=== PATIENT | male | born 1980 | race Two or more races ===

== ENCOUNTER 2019-11-24 09:44 | Emergency (ER) | payer MEDICAID ==
[~2019-11-24] VITALS: Ht 172.7 cm; Wt 95.3 kg
[2019-11-24] MEDS ORDERED: ACETAMINOPHEN 325 MG TAB PO ONE (10:15)
[2019-11-24] MEDS ORDERED: AZITHROMYCIN 500MG/ 250ML 250 ML IV ONE (10:30)
[2019-11-24] MEDS ORDERED: methylPREDNISolone SOD SUCC 125 MG/2 ML VL IV ONE (10:30)
[2019-11-24] MEDS ORDERED: SODIUM CHLORIDE 0.9% 1,000 ML IV ONE (10:30)
[2019-11-24 11:12] LABS: Basophils # (auto) 0.1 10 ^3/uL (0-0.2); Basophils % (auto) 0.3 % (0.0-2.0); Eosinophils # (auto) 0 10 ^3/uL (0-0.8); Hematocrit 44.6 % (41.0-53.0); Hemoglobin 14.5 g/dL (13.5-17.5); Lymphocytes # (auto) 0.8 10 ^3/uL (0.4-5.4); Lymphocytes % (auto) 5.3 % (10.0-50.0); Mean Corpuscular Hemoglobin 29.7 pg (28.0-32.0); Mean Corpuscular Hgb Conc. 32.4 g/dL (32.0-36.0); Mean Corpuscular Volume 91.7 fL (80.0-100.0); Monocytes # (auto) 1.5 10 ^3/uL (0-1.3); Monocytes % (auto) 9.4 % (0.0-12.0); Neutrophils # (auto) 13.3 10 ^3/uL (1.6-8.6); Platelet Count (auto) 261 10^3/uL (140-450); Red Blood Cells 4.86 10^6/uL (4.5-5.90); Red Cell Distribution Width 13.4 % (11.8-14.3); White Blood Cell 15.6 10^3/uL (4.4-10.8)
[2019-11-24 11:46] LABS: Albumin 4.1 g/dL (3.4-5.0); Calcium 9.6 mg/dL (8.5-10.1); Potassium 3.3 mmol/L (3.5-5.1)
[2019-11-24 11:56] LABS: Total Protein 7.9 g/dL (6.4-8.2)
[2019-11-24 12:13] LABS: BUN/Creatinine Ratio 7.4
[2019-11-24 12:14] LABS: Bilirubin, Total 0.7 mg/dL (0.2-1.0)
[2019-11-24 13:08] LABS: CRP High Sensitivity 18.2 mg/dL (< 0.3)
[2019-11-24 14:47] VITALS: BP 128/82
== END 2019-11-24 14:39 | disposition home or self-care (01) ==
LOC: ER 09:44
DX: J02.9 Acute pharyngitis, unspecified (principal); Z20.828 Contact with and (suspected) exposure to other viral communicable diseases; F17.210 Nicotine dependence, cigarettes, uncomplicated
CPT/HCPCS: 36415; 71045; 80053; 82728; 83605; 83615; 85025; 86141; 87040; 87070; 87426; 87804; 87880; 96365; 96366; 96375; 99284; J0456; J2930; J7030

== ENCOUNTER 2019-11-25 08:10 | Inpatient (IN) | payer MEDICAID ==
[~2019-11-25] VITALS: Ht 175.3 cm; Wt 80.5 kg
[2019-11-25] MEDS ORDERED: SODIUM CHLORIDE 0.9% 1,000 ML IV ONE ×2 (08:49→11:43)
[2019-11-25] MEDS ORDERED: KETOROLAC TROMETH 30 MG/ML 1ML VIAL IV ONE (09:00)
[2019-11-25] MEDS ORDERED: methylPREDNISolone SOD SUCC 125 MG/2 ML VL IV ONE (09:00)
[2019-11-25] MEDS ORDERED: cefTRIAXone 1GM/50ML D5W 50 ML IV ONE (09:00)
[2019-11-25] MEDS ORDERED: LORazepam 2MG/ML-1ML VIAL IV ONE (09:45)
[2019-11-25 10:05] LABS: Albumin 3.8 g/dL (3.4-5.0); Calcium 9.2 mg/dL (8.5-10.1); Potassium 3.6 mmol/L (3.5-5.1)
[2019-11-25 10:08] LABS: Bilirubin, Total 0.6 mg/dL (0.2-1.0); Total Protein 8.1 g/dL (6.4-8.2)
[2019-11-25 10:15] LABS: Basophils # (auto) 0.1 10 ^3/uL (0-0.2); Basophils % (auto) 0.4 % (0.0-2.0); Eosinophils # (auto) 0 10 ^3/uL (0-0.8); Eosinophils % (auto) 0.1 % (0.0-7.0); Hematocrit 42.6 % (41.0-53.0); Hemoglobin 13.7 g/dL (13.5-17.5); Lymphocytes % (auto) 4.7 % (10.0-50.0); Mean Corpuscular Hemoglobin 29.8 pg (28.0-32.0); Mean Corpuscular Hgb Conc. 32.2 g/dL (32.0-36.0); Mean Corpuscular Volume 92.4 fL (80.0-100.0); Monocytes # (auto) 2.6 10 ^3/uL (0-1.3); Monocytes % (auto) 12.2 % (0.0-12.0); Neutrophils # (auto) 17.8 10 ^3/uL (1.6-8.6); Neutrophils % (auto) 82.6 % (37.0-80.0); Nucleated Red Blood Cells % 0.1 %; Platelet Count (auto) 277 10^3/uL (140-450); Red Blood Cells 4.61 10^6/uL (4.5-5.90); Red Cell Distribution Width 13.7 % (11.8-14.3); White Blood Cell 21.5 10^3/uL (4.4-10.8)
[2019-11-25] MEDS ORDERED: SUCCINYLCHOLINE CHLORIDE 20 MG/ML 10ML VIAL IV ONE ×2 (10:15→11:15)
[2019-11-25] MEDS ORDERED: ETOMIDATE (2MG/ML) 20ML VIAL IV ONE ×2 (10:15→11:15)
[2019-11-25] MEDS ORDERED: MIDAZOLAM DRIP 50 mg/50mL 50 ML IV ONE ×2 (10:16→11:48)
[2019-11-25 10:37] LABS: CRP High Sensitivity 17.4 mg/dL (< 0.3)
[2019-11-25 10:50] VITALS: BP 95/47
[2019-11-25] MEDS ORDERED: EPINEPHrine HCL 1 MG/10 ML SYRG ONE ×2 (10:50→11:01)
[2019-11-25] MEDS ORDERED: MAGNESIUM SULFATE 1GM/100ML 100 ML IV ONE ×3 (10:57→11:15)
[2019-11-25] MEDS: MIDAZOLAM DRIP 50 mg/50mL 50 ML IV SCH (11:05)
[2019-11-25] MEDS ORDERED: LORazepam 2MG/ML-1ML VIAL IV PRN (11:45)
[2019-11-25] MEDS ORDERED: MORPHINE SULFATE 4 MG/ML SYR/VIAL IV PRN (11:45)
[2019-11-25] MEDS ORDERED: NITROGLYCERIN 0.4 MG SL TAB SL PRN (11:45)
[2019-11-25] MEDS ORDERED: VANCOMYCIN PER PHARMACY 1,000 MG IV SCH (11:45)
[2019-11-25] MEDS ORDERED: MORPHINE SULF INJ 2 MG/ML SYRINGE 1ML IV PRN (11:45)
[2019-11-25] MEDS ORDERED: NOREPINEPHRINE 8 MG/250ML KIT 250 ML IV ONE (11:58)
[2019-11-25] MEDS: NOREPINEPHRINE 8 MG/250ML KIT 250 ML IV SCH (12:00)
[2019-11-25] MEDS ORDERED: DexAMETHasone INJECTION 10 MG in SODIUM CHL 3% 500 ML IV SCH (12:00)
[2019-11-25 12:04] LABS: Urine Amorphous Crystal FEW /hpf (None Seen); Urine Bacteria FEW /hpf (None Seen); Urine Blood 1+ /uL (Negative); Urine Hyaline Cast FEW /lpf (0 - 2); Urine Mucus FEW (None Seen); Urine Specific Gravity 1.013 (1.001-1.035); Urine WBC 28 /hpf (0 - 3)
[2019-11-25 12:26] LABS: INR 0.99 (0.9-1.15); Partial Thromboplastin Time 25.2 sec (23.0-31.2)
[2019-11-25 12:30] VITALS: BP 106/53
[2019-11-25] MEDS ORDERED: HYDROCORTISONE SOD SUCC 100 MG/2ML INJ VIAL IV SCH (12:30)
[2019-11-25 12:32] LABS: Alcohol, Urine < 3.0 mg/dL (0-10); Amphetamine Screen, Urine NEGATIVE (NEGATIVE); Barbiturate Scree,Urine NEGATIVE (NEGATIVE); Benzodiazephine Screen, Urine POSITIVE (NEGATIVE); Cannabinoid Screen, Urine NEGATIVE (NEGATIVE); Cocaine Screen, Urine NEGATIVE (NEGATIVE); Opiate Scree,Urine NEGATIVE (NEGATIVE); Phencyclidine Screen, Urine NEGATIVE (NEGATIVE)
[2019-11-25] MEDS ORDERED: PROPOFOL 100 ML IV ONE (13:52)
[2019-11-25] MEDS: PROPOFOL 100 ML IV SCH (14:00)
[2019-11-25] MEDS: PIPERACILLIN-TAZOB 3.375GM 100 ML IV SCH ×2 (14:14→18:40)
[2019-11-25] MEDS ORDERED: IOHEXOL 350 MG/ML 100ML IJ ONE (15:25)
[2019-11-25] MEDS: VANCOMYCIN 1GM/250ML 250 ML IV SCH (15:46)
[2019-11-25 15:53] LABS: Lactic Acid w/Reflex 2.4 mmol/L (0.4-2.0)
[2019-11-25 16:30] VITALS: BP 110/72
[2019-11-25 18:45] VITALS: BP 115/68
[2019-11-25 20:35] VITALS: BP 111/74
[2019-11-25] MEDS: ASCORBIC ACID 500 MG TAB PO SCH (22:00)
[2019-11-25 23:20] VITALS: BP 112/72
[2019-11-26] VITALS (48 sets, daily range): BP systolic 96–128; BP diastolic 63–85
[2019-11-26] MEDS: FAMOTIDINE (10MG/ML) 2ML VL IV SCH ×3 (02:51→22:02)
[2019-11-26] MEDS: PIPERACILLIN-TAZOB 3.375GM 100 ML IV SCH ×4 (02:52→18:30)
[2019-11-26] MEDS: VANCOMYCIN 1GM/250ML 250 ML IV SCH ×3 (03:04→21:00)
[2019-11-26] MEDS ORDERED: ACETAMINOPHEN 650 MG RECT SUPP PR ONE (07:15)
[2019-11-26 09:46] LABS: Basophils # (auto) 0 10 ^3/uL (0-0.2); Basophils % (auto) 0.2 % (0.0-2.0); Eosinophils # (auto) 0 10 ^3/uL (0-0.8); Hematocrit 39.2 % (41.0-53.0); Hemoglobin 12.8 g/dL (13.5-17.5); Lymphocytes # (auto) 1.1 10 ^3/uL (0.4-5.4); Lymphocytes % (auto) 7.5 % (10.0-50.0); Mean Corpuscular Hgb Conc. 32.6 g/dL (32.0-36.0); Mean Corpuscular Volume 92.1 fL (80.0-100.0); Monocytes # (auto) 1.6 10 ^3/uL (0-1.3); Monocytes % (auto) 11.1 % (0.0-12.0); Neutrophils % (auto) 81.2 % (37.0-80.0); Platelet Count (auto) 269 10^3/uL (140-450); Red Blood Cells 4.25 10^6/uL (4.5-5.90); Red Cell Distribution Width 13.5 % (11.8-14.3); White Blood Cell 14.7 10^3/uL (4.4-10.8)
[2019-11-26 09:53] LABS: Albumin 2.9 g/dL (3.4-5.0); Calcium 8.9 mg/dL (8.5-10.1)
[2019-11-26 09:56] LABS: BUN/Creatinine Ratio 18.2; Bilirubin, Total 1.1 mg/dL (0.2-1.0); Total Protein 6.9 g/dL (6.4-8.2)
[2019-11-26] MEDS ORDERED: DexAMETHasone SOD PHOS 10MG/1ML VIAL INJ IV SCH (10:00)
[2019-11-26] MEDS: ASCORBIC ACID 500 MG TAB PO SCH ×2 (10:20→22:02)
[2019-11-26] MEDS: ENOXAPARIN SOD 40 MG/0.4 ML SYRINGE SC SCH (10:20)
[2019-11-26] MEDS: CHOLECALCIFEROL (VITD3) 2,000 UNIT CAP PO SCH (10:20)
[2019-11-26] MEDS: ZINC SULFATE 220mg CAP or TAB PO SCH (10:20)
[2019-11-26] MEDS: MIDAZOLAM DRIP 50 mg/50mL 50 ML IV SCH ×2 (11:29→20:16)
[2019-11-26] MEDS: NOREPINEPHRINE 8 MG/250ML KIT 250 ML IV SCH (12:05)
[2019-11-26] MEDS ORDERED: EPINEPHrine HCL 1 MG/10 ML SYRG IV ONE (12:15)
[2019-11-26] MEDS ORDERED: CALCIUM CHLOR(10%) 100MG/ML 10ML SYRINGE IV ONE (12:15)
[2019-11-26] MEDS ORDERED: SODIUM BICARBONATE 8.4% INJ 50ML SYRINGE IV ONE (12:15)
[2019-11-26] MEDS: PROPOFOL 100 ML IV SCH ×2 (14:27→20:17)
[2019-11-26] MEDS: fentaNYL Drip 2500mCg/250mlNS 250 ML IV SCH (17:15)
[2019-11-26] MEDS: ACETAMINOPHEN 325 MG TAB PO PRN (18:57)
[2019-11-26] MEDS: methylPREDNISolone SOD SUCC 40 MG/ML VL IV SCH (22:03)
[2019-11-27] VITALS (105 sets, daily range): BP systolic 109–135; BP diastolic 63–78
[2019-11-27] MEDS: PIPERACILLIN-TAZOB 3.375GM 100 ML IV SCH ×4 (00:19→18:52)
[2019-11-27] MEDS: PROPOFOL 100 ML IV SCH ×3 (00:24→22:01)
[2019-11-27 04:24] LABS: Basophils # (auto) 0.1 10 ^3/uL (0-0.2); Basophils % (auto) 0.4 % (0.0-2.0); Eosinophils # (auto) 0 10 ^3/uL (0-0.8); Hematocrit 36.5 % (41.0-53.0); Hemoglobin 12.3 g/dL (13.5-17.5); Lymphocytes # (auto) 0.5 10 ^3/uL (0.4-5.4); Lymphocytes % (auto) 3.3 % (10.0-50.0); Mean Corpuscular Hemoglobin 31.2 pg (28.0-32.0); Mean Corpuscular Hgb Conc. 33.6 g/dL (32.0-36.0); Mean Corpuscular Volume 92.8 fL (80.0-100.0); Monocytes % (auto) 6.9 % (0.0-12.0); Neutrophils % (auto) 89.4 % (37.0-80.0); Platelet Count (auto) 282 10^3/uL (140-450); Red Blood Cells 3.94 10^6/uL (4.5-5.90); Red Cell Distribution Width 13.8 % (11.8-14.3); White Blood Cell 14.6 10^3/uL (4.4-10.8)
[2019-11-27 04:46] LABS: Calcium 8.5 mg/dL (8.5-10.1); Potassium 3.5 mmol/L (3.5-5.1)
[2019-11-27 04:49] LABS: BUN/Creatinine Ratio 17.4
[2019-11-27] MEDS: methylPREDNISolone SOD SUCC 40 MG/ML VL IV SCH ×3 (05:38→21:54)
[2019-11-27] MEDS: VANCOMYCIN 1GM/250ML 250 ML IV SCH ×3 (07:24→22:07)
[2019-11-27] MEDS: MIDAZOLAM DRIP 50 mg/50mL 50 ML IV SCH ×3 (09:19→22:53)
[2019-11-27] MEDS: CHOLECALCIFEROL (VITD3) 2,000 UNIT CAP PO SCH (09:44)
[2019-11-27] MEDS: ZINC SULFATE 220mg CAP or TAB PO SCH (09:44)
[2019-11-27] MEDS: FAMOTIDINE (10MG/ML) 2ML VL IV SCH ×2 (09:44→21:54)
[2019-11-27] MEDS: ENOXAPARIN SOD 40 MG/0.4 ML SYRINGE SC SCH ×2 (09:44→15:41)
[2019-11-27] MEDS: ASCORBIC ACID 500 MG TAB PO SCH ×2 (09:45→21:54)
[2019-11-27] MEDS: NOREPINEPHRINE 8 MG/250ML KIT 250 ML IV SCH (12:00)
[2019-11-27] MEDS ORDERED: IOHEXOL 350 MG/ML 100ML IJ ONE (13:36)
[2019-11-28] VITALS (79 sets, daily range): BP systolic 118–145; BP diastolic 65–79
[2019-11-28] MEDS: fentaNYL Drip 2500mCg/250mlNS 250 ML IV SCH ×2 (00:09→15:25)
[2019-11-28] MEDS: PIPERACILLIN-TAZOB 3.375GM 100 ML IV SCH ×5 (00:09→23:53)
[2019-11-28] MEDS: PROPOFOL 100 ML IV SCH (03:09)
[2019-11-28 03:54] LABS: Basophils # (auto) 0 10 ^3/uL (0-0.2); Eosinophils # (auto) 0 10 ^3/uL (0-0.8); Hematocrit 35.2 % (41.0-53.0); Hemoglobin 11.8 g/dL (13.5-17.5); Lymphocytes # (auto) 1.1 10 ^3/uL (0.4-5.4); Lymphocytes % (auto) 7.5 % (10.0-50.0); Mean Corpuscular Hemoglobin 30.9 pg (28.0-32.0); Mean Corpuscular Hgb Conc. 33.4 g/dL (32.0-36.0); Mean Corpuscular Volume 92.5 fL (80.0-100.0); Monocytes # (auto) 1.3 10 ^3/uL (0-1.3); Monocytes % (auto) 9.1 % (0.0-12.0); Neutrophils # (auto) 12.2 10 ^3/uL (1.6-8.6); Neutrophils % (auto) 83.4 % (37.0-80.0); Nucleated Red Blood Cells % 0.1 %; Platelet Count (auto) 331 10^3/uL (140-450); Red Blood Cells 3.81 10^6/uL (4.5-5.90); Red Cell Distribution Width 13.9 % (11.8-14.3); White Blood Cell 14.6 10^3/uL (4.4-10.8)
[2019-11-28 04:13] LABS: Potassium 3.7 mmol/L (3.5-5.1)
[2019-11-28 04:17] LABS: Calcium 8.8 mg/dL (8.5-10.1)
[2019-11-28] MEDS: methylPREDNISolone SOD SUCC 40 MG/ML VL IV SCH ×3 (05:33→21:12)
[2019-11-28] MEDS: ZINC SULFATE 220mg CAP or TAB PO SCH (10:00)
[2019-11-28] MEDS: CHOLECALCIFEROL (VITD3) 2,000 UNIT CAP PO SCH (10:00)
[2019-11-28] MEDS: ASCORBIC ACID 500 MG TAB PO SCH ×2 (10:00→21:13)
[2019-11-28] MEDS: ENOXAPARIN SOD 40 MG/0.4 ML SYRINGE SC SCH (10:28)
[2019-11-28] MEDS: FAMOTIDINE (10MG/ML) 2ML VL IV SCH ×2 (10:28→21:12)
[2019-11-28] MEDS: VANCOMYCIN 1GM/250ML 250 ML IV SCH ×2 (10:45→20:55)
[2019-11-28] MEDS: NOREPINEPHRINE 8 MG/250ML KIT 250 ML IV SCH (12:00)
[2019-11-29] VITALS (96 sets, daily range): BP systolic 123–142; BP diastolic 60–70
[2019-11-29 04:08] LABS: Basophils # (auto) 0 10 ^3/uL (0-0.2); Eosinophils # (auto) 0 10 ^3/uL (0-0.8); Hematocrit 37.4 % (41.0-53.0); Hemoglobin 12.3 g/dL (13.5-17.5); Lymphocytes # (auto) 0.9 10 ^3/uL (0.4-5.4); Lymphocytes % (auto) 6.1 % (10.0-50.0); Mean Corpuscular Hemoglobin 30.5 pg (28.0-32.0); Mean Corpuscular Volume 92.4 fL (80.0-100.0); Monocytes # (auto) 1.4 10 ^3/uL (0-1.3); Monocytes % (auto) 9.7 % (0.0-12.0); Neutrophils # (auto) 11.9 10 ^3/uL (1.6-8.6); Neutrophils % (auto) 84.2 % (37.0-80.0); Nucleated Red Blood Cells % 0.1 %; Platelet Count (auto) 455 10^3/uL (140-450); Red Blood Cells 4.04 10^6/uL (4.5-5.90); White Blood Cell 14.1 10^3/uL (4.4-10.8)
[2019-11-29 04:29] LABS: Potassium 3.6 mmol/L (3.5-5.1)
[2019-11-29 04:35] LABS: BUN/Creatinine Ratio 27.5; Calcium 9.4 mg/dL (8.5-10.1)
[2019-11-29] MEDS: VANCOMYCIN 1GM/250ML 250 ML IV SCH ×3 (05:26→17:38)
[2019-11-29] MEDS: methylPREDNISolone SOD SUCC 40 MG/ML VL IV SCH ×3 (05:30→22:00)
[2019-11-29] MEDS: PIPERACILLIN-TAZOB 3.375GM 100 ML IV SCH ×3 (05:30→18:37)
[2019-11-29] MEDS: ZINC SULFATE 220mg CAP or TAB PO SCH (10:35)
[2019-11-29] MEDS: CHOLECALCIFEROL (VITD3) 2,000 UNIT CAP PO SCH (10:35)
[2019-11-29] MEDS: ASCORBIC ACID 500 MG TAB PO SCH ×2 (10:35→22:00)
[2019-11-29] MEDS: ENOXAPARIN SOD 40 MG/0.4 ML SYRINGE SC SCH (10:35)
[2019-11-29] MEDS: FAMOTIDINE (10MG/ML) 2ML VL IV SCH ×2 (10:35→22:00)
[2019-11-29] MEDS: MIDAZOLAM DRIP 50 mg/50mL 50 ML IV SCH (11:05)
[2019-11-29] MEDS: NOREPINEPHRINE 8 MG/250ML KIT 250 ML IV SCH (12:00)
[2019-11-29] MEDS: PROPOFOL 100 ML IV SCH (14:15)
[2019-11-29] MEDS: fentaNYL Drip 2500mCg/250mlNS 250 ML IV SCH (17:11)
[2019-11-29] MEDS ORDERED: SODIUM BICARBONATE 8.4 % INJ 50ML VIAL IV ONE (23:30)
[2019-11-30] VITALS (84 sets, daily range): BP systolic 116–137; BP diastolic 58–72
[2019-11-30] MEDS: ACETAMINOPHEN 325 MG TAB PO PRN ×2 (00:16→13:09)
[2019-11-30] MEDS: VANCOMYCIN 1GM/250ML 250 ML IV SCH ×5 (00:16→23:46)
[2019-11-30] MEDS: PIPERACILLIN-TAZOB 3.375GM 100 ML IV SCH ×4 (01:00→18:28)
[2019-11-30 04:30] LABS: Basophils # (auto) 0 10 ^3/uL (0-0.2); Basophils % (auto) 0.1 % (0.0-2.0); Eosinophils # (auto) 0 10 ^3/uL (0-0.8); Hemoglobin 13.3 g/dL (13.5-17.5)
[2019-11-30 04:32] LABS: Hematocrit 40.8 % (41.0-53.0); Lymphocytes % (auto) 9.5 % (10.0-50.0); Mean Corpuscular Hemoglobin 30.4 pg (28.0-32.0); Mean Corpuscular Hgb Conc. 32.6 g/dL (32.0-36.0); Mean Corpuscular Volume 93.2 fL (80.0-100.0); Monocytes # (auto) 1.3 10 ^3/uL (0-1.3); Monocytes % (auto) 12.2 % (0.0-12.0); Neutrophils # (auto) 8.4 10 ^3/uL (1.6-8.6); Neutrophils % (auto) 78.2 % (37.0-80.0); Platelet Count (auto) 514 10^3/uL (140-450); Red Blood Cells 4.38 10^6/uL (4.5-5.90); Red Cell Distribution Width 14.5 % (11.8-14.3); White Blood Cell 10.8 10^3/uL (4.4-10.8)
[2019-11-30 04:55] LABS: BUN/Creatinine Ratio 24.7; Calcium 9.9 mg/dL (8.5-10.1); Potassium 3.3 mmol/L (3.5-5.1)
[2019-11-30] MEDS: methylPREDNISolone SOD SUCC 40 MG/ML VL IV SCH ×3 (06:08→21:37)
[2019-11-30] MEDS ORDERED: POTASSIUM CHL 20MEQ/100ML 100 ML IV ONE ×2 (07:00→23:45)
[2019-11-30] MEDS: FAMOTIDINE (10MG/ML) 2ML VL IV SCH ×2 (10:07→21:37)
[2019-11-30] MEDS: ZINC SULFATE 220mg CAP or TAB PO SCH (10:07)
[2019-11-30] MEDS: ASCORBIC ACID 500 MG TAB PO SCH ×2 (10:08→21:37)
[2019-11-30] MEDS: CHOLECALCIFEROL (VITD3) 2,000 UNIT CAP PO SCH (10:08)
[2019-11-30] MEDS: MIDAZOLAM DRIP 50 mg/50mL 50 ML IV SCH (11:05)
[2019-11-30] MEDS: NOREPINEPHRINE 8 MG/250ML KIT 250 ML IV SCH (12:00)
[2019-11-30] MEDS: PROPOFOL 100 ML IV SCH (14:15)
[2019-11-30] MEDS: fentaNYL Drip 2500mCg/250mlNS 250 ML IV SCH (17:11)
[2019-11-30 23:21] LABS: BUN/Creatinine Ratio 21.7; Calcium 10.2 mg/dL (8.5-10.1); Potassium 3.1 mmol/L (3.5-5.1)
[2019-11-30] MEDS: FREE WATER GT SCH (23:46)
[2019-12-01] VITALS (106 sets, daily range): BP systolic 108–137; BP diastolic 53–78
[2019-12-01] MEDS: PIPERACILLIN-TAZOB 3.375GM 100 ML IV SCH ×4 (00:56→18:30)
[2019-12-01] MEDS: FREE WATER GT SCH ×4 (05:31→23:43)
[2019-12-01] MEDS: methylPREDNISolone SOD SUCC 40 MG/ML VL IV SCH ×3 (05:31→21:31)
[2019-12-01] MEDS: VANCOMYCIN 1GM/250ML 250 ML IV SCH ×4 (05:34→23:43)
[2019-12-01 06:29] LABS: Basophils # (auto) 0 10 ^3/uL (0-0.2); Basophils % (auto) 0.2 % (0.0-2.0); Eosinophils # (auto) 0 10 ^3/uL (0-0.8); Eosinophils % (auto) 0.1 % (0.0-7.0); Hematocrit 39.3 % (41.0-53.0); Hemoglobin 12.4 g/dL (13.5-17.5); Lymphocytes # (auto) 1.8 10 ^3/uL (0.4-5.4); Lymphocytes % (auto) 15.8 % (10.0-50.0); Mean Corpuscular Hemoglobin 29.9 pg (28.0-32.0); Mean Corpuscular Hgb Conc. 31.7 g/dL (32.0-36.0); Mean Corpuscular Volume 94.4 fL (80.0-100.0); Monocytes # (auto) 1.2 10 ^3/uL (0-1.3); Monocytes % (auto) 10.4 % (0.0-12.0); Neutrophils # (auto) 8.5 10 ^3/uL (1.6-8.6); Neutrophils % (auto) 73.5 % (37.0-80.0); Nucleated Red Blood Cells % 0.1 %; Platelet Count (auto) 447 10^3/uL (140-450); Red Blood Cells 4.16 10^6/uL (4.5-5.90); Red Cell Distribution Width 14.3 % (11.8-14.3); White Blood Cell 11.5 10^3/uL (4.4-10.8)
[2019-12-01 06:44] LABS: BUN/Creatinine Ratio 19.4; Calcium 9.1 mg/dL (8.5-10.1); Potassium 3.3 mmol/L (3.5-5.1)
[2019-12-01] MEDS: ENOXAPARIN SOD 40 MG/0.4 ML SYRINGE SC SCH (10:00)
[2019-12-01] MEDS: ASCORBIC ACID 500 MG TAB PO SCH ×2 (10:10→21:31)
[2019-12-01] MEDS: ZINC SULFATE 220mg CAP or TAB PO SCH (10:10)
[2019-12-01] MEDS: CHOLECALCIFEROL (VITD3) 2,000 UNIT CAP PO SCH (10:10)
[2019-12-01] MEDS: FAMOTIDINE (10MG/ML) 2ML VL IV SCH ×2 (10:10→21:31)
[2019-12-01] MEDS: MIDAZOLAM DRIP 50 mg/50mL 50 ML IV SCH (11:05)
[2019-12-01] MEDS: NOREPINEPHRINE 8 MG/250ML KIT 250 ML IV SCH (12:00)
[2019-12-01] MEDS: PROPOFOL 100 ML IV SCH (14:15)
[2019-12-01] MEDS: D5W 5% 1,000 ML IV SCH ×2 (14:43)
[2019-12-01] MEDS: fentaNYL Drip 2500mCg/250mlNS 250 ML IV SCH (17:11)
[2019-12-02] VITALS (99 sets, daily range): BP systolic 94–130; BP diastolic 51–69
[2019-12-02] MEDS: PIPERACILLIN-TAZOB 3.375GM 100 ML IV SCH ×4 (01:07→19:08)
[2019-12-02 04:15] LABS: Basophils # (auto) 0 10 ^3/uL (0-0.2); Basophils % (auto) 0.1 % (0.0-2.0); Eosinophils # (auto) 0 10 ^3/uL (0-0.8); Eosinophils % (auto) 0.2 % (0.0-7.0); Lymphocytes # (auto) 1.7 10 ^3/uL (0.4-5.4); Lymphocytes % (auto) 13.9 % (10.0-50.0); Mean Corpuscular Hgb Conc. 31.7 g/dL (32.0-36.0); Mean Corpuscular Volume 94.7 fL (80.0-100.0); Monocytes # (auto) 0.8 10 ^3/uL (0-1.3); Monocytes % (auto) 6.7 % (0.0-12.0); Neutrophils # (auto) 9.9 10 ^3/uL (1.6-8.6); Neutrophils % (auto) 79.1 % (37.0-80.0); Nucleated Red Blood Cells % 0.2 %; Platelet Count (auto) 428 10^3/uL (140-450); Red Blood Cells 4.33 10^6/uL (4.5-5.90); Red Cell Distribution Width 14.6 % (11.8-14.3); White Blood Cell 12.5 10^3/uL (4.4-10.8)
[2019-12-02 04:38] LABS: Potassium 3.7 mmol/L (3.5-5.1)
[2019-12-02 04:45] LABS: BUN/Creatinine Ratio 18.2; Calcium 9.7 mg/dL (8.5-10.1)
[2019-12-02] MEDS: FREE WATER GT SCH ×4 (05:36→20:01)
[2019-12-02] MEDS: methylPREDNISolone SOD SUCC 40 MG/ML VL IV SCH ×3 (05:36→22:00)
[2019-12-02] MEDS: VANCOMYCIN 1GM/250ML 250 ML IV SCH ×2 (05:41→14:00)
[2019-12-02] MEDS: D5W 5% 1,000 ML IV SCH ×2 (06:29→21:57)
[2019-12-02] MEDS: ENOXAPARIN SOD 40 MG/0.4 ML SYRINGE SC SCH (10:00)
[2019-12-02] MEDS: ASCORBIC ACID 500 MG TAB PO SCH (10:18)
[2019-12-02] MEDS: CHOLECALCIFEROL (VITD3) 2,000 UNIT CAP PO SCH (10:18)
[2019-12-02] MEDS: FAMOTIDINE (10MG/ML) 2ML VL IV SCH ×2 (10:18→22:00)
[2019-12-02] MEDS: ZINC SULFATE 220mg CAP or TAB PO SCH (10:18)
[2019-12-02] MEDS: MIDAZOLAM DRIP 50 mg/50mL 50 ML IV SCH (11:05)
[2019-12-02] MEDS: NOREPINEPHRINE 8 MG/250ML KIT 250 ML IV SCH (12:00)
[2019-12-02] MEDS: PROPOFOL 100 ML IV SCH (14:15)
[2019-12-03] VITALS (97 sets, daily range): BP systolic 98–120; BP diastolic 49–73
[2019-12-03] MEDS: PIPERACILLIN-TAZOB 3.375GM 100 ML IV SCH ×4 (01:00→19:00)
[2019-12-03] MEDS: FREE WATER GT SCH ×4 (02:30→20:30)
[2019-12-03 04:11] LABS: Basophils # (auto) 0 10 ^3/uL (0-0.2); Basophils % (auto) 0.1 % (0.0-2.0); Eosinophils # (auto) 0.1 10 ^3/uL (0-0.8); Hematocrit 41.2 % (41.0-53.0); Hemoglobin 13.1 g/dL (13.5-17.5); Lymphocytes # (auto) 1.3 10 ^3/uL (0.4-5.4); Lymphocytes % (auto) 9.4 % (10.0-50.0); Mean Corpuscular Hemoglobin 30.3 pg (28.0-32.0); Mean Corpuscular Hgb Conc. 31.9 g/dL (32.0-36.0); Mean Corpuscular Volume 95.2 fL (80.0-100.0); Monocytes # (auto) 0.7 10 ^3/uL (0-1.3); Monocytes % (auto) 4.9 % (0.0-12.0); Neutrophils # (auto) 11.7 10 ^3/uL (1.6-8.6); Neutrophils % (auto) 84.6 % (37.0-80.0); Nucleated Red Blood Cells % 0.1 %; Platelet Count (auto) 380 10^3/uL (140-450); Red Blood Cells 4.33 10^6/uL (4.5-5.90); Red Cell Distribution Width 14.6 % (11.8-14.3); White Blood Cell 13.8 10^3/uL (4.4-10.8)
[2019-12-03 04:28] LABS: BUN/Creatinine Ratio 21.4; Calcium 9.6 mg/dL (8.5-10.1); Potassium 3.9 mmol/L (3.5-5.1)
[2019-12-03] MEDS: methylPREDNISolone SOD SUCC 40 MG/ML VL IV SCH ×3 (05:16→21:28)
[2019-12-03] MEDS: VANCOMYCIN 1GM/250ML 250 ML IV SCH ×4 (06:37→21:00)
[2019-12-03] MEDS: ENOXAPARIN SOD 40 MG/0.4 ML SYRINGE SC SCH (11:00)
[2019-12-03] MEDS: FAMOTIDINE (10MG/ML) 2ML VL IV SCH ×2 (11:00→21:28)
[2019-12-03] MEDS: D5W 5% 1,000 ML IV SCH (13:29)
[2019-12-04] VITALS (80 sets, daily range): BP systolic 102–134; BP diastolic 29–88
[2019-12-04] MEDS: PIPERACILLIN-TAZOB 3.375GM 100 ML IV SCH ×3 (01:00→13:23)
[2019-12-04] MEDS: FREE WATER GT SCH ×3 (02:30→14:31)
[2019-12-04] MEDS: VANCOMYCIN 1GM/250ML 250 ML IV SCH ×2 (04:00→10:35)
[2019-12-04] MEDS: D5W 5% 1,000 ML IV SCH ×2 (04:45→14:30)
[2019-12-04 05:06] LABS: Magnesium 2.5 mg/dL (1.6-2.6); Potassium 4.2 mmol/L (3.5-5.1)
[2019-12-04] MEDS: methylPREDNISolone SOD SUCC 40 MG/ML VL IV SCH ×2 (05:36→13:25)
[2019-12-04] MEDS: ENOXAPARIN SOD 40 MG/0.4 ML SYRINGE SC SCH (10:04)
[2019-12-04] MEDS: FAMOTIDINE (10MG/ML) 2ML VL IV SCH (10:04)
[2019-12-04] MEDS ORDERED: MORPHINE SULFATE 4 MG/ML SYR/VIAL IV PRN (17:00)
[2019-12-04] MEDS ORDERED: LORazepam 2MG/ML-1ML VIAL IV PRN (17:00)
== END 2019-12-05 02:15 | disposition expired | DRG 720 ==
LOC: ER 08:10 → TELE 08:11 → ICU WEST 11-26 15:09
PROVIDERS: ADMIT Hospitalist; ATTEND Internal Medicine Pulmonary Disease
PROC: 5A1955Z Respiratory Ventilation, Greater than 96 Consecutive Hours (ICD-10-PCS; principal; 2019-11-25)
PROC: 0BH17EZ Insertion of Endotracheal Airway into Trachea, Via Natural or Artificial Opening (ICD-10-PCS; 2019-11-25)
PROC: 5A12012 Performance of Cardiac Output, Single, Manual (ICD-10-PCS; 2019-11-25)
PROC: 06HM33Z Insertion of Infusion Device into Right Femoral Vein, Percutaneous Approach (ICD-10-PCS; 2019-11-25)
PROC: 0C9P3ZZ Drainage of Tonsils, Percutaneous Approach (ICD-10-PCS; 2019-11-28)
DX: A41.9 Sepsis, unspecified organism (principal); R65.21 Severe sepsis with septic shock; J98.2 Interstitial emphysema; J96.02 Acute respiratory failure with hypercapnia; J96.01 Acute respiratory failure with hypoxia; J18.9 Pneumonia, unspecified organism; I46.9 Cardiac arrest, cause unspecified; R40.20 Unspecified coma; G93.6 Cerebral edema; G91.1 Obstructive hydrocephalus; G93.1 Anoxic brain damage, not elsewhere classified; E66.9 Obesity, unspecified; F20.9 Schizophrenia, unspecified; F41.9 Anxiety disorder, unspecified; J98.11 Atelectasis; E87.0 Hyperosmolality and hypernatremia; Z68.31 Body mass index [BMI] 31.0-31.9, adult; F17.210 Nicotine dependence, cigarettes, uncomplicated; F31.9 Bipolar disorder, unspecified; J36 Peritonsillar abscess; Z66 Do not resuscitate; Z51.5 Encounter for palliative care; Z80.9 Family history of malignant neoplasm, unspecified; Z83.3 Family history of diabetes mellitus; Z82.49 Family history of ischemic heart disease and other diseases of the circulatory system; Z20.828 Contact with and (suspected) exposure to other viral communicable diseases; G93.41 Metabolic encephalopathy
CPT/HCPCS: 10022; 36415; 36600; 70360; 70450; 70491; 71045; 71275; 76942; 80048; 80053; 80202; 80307; 81001; 82553; 82728; 82805; 82962; 83605; 83615; 83735; 84132; 84295; 84484; 85025; 85379; 85610; 85730; 86141; 87040; 87070; 87077; 87081; 87086; 87186; 87205; 93005; 93306; 94003; 95819; A4618; G0378; J0330; J0696; J1885; J2250; J2543; J2704; J3480; J3490